=== PATIENT | male | born 1955 | race Caucasian/White ===

== ENCOUNTER 2017-12-04 14:45 | Inpatient (IN) | payer OTHER ==
[~2017-12-04] VITALS: Ht 180.3 cm; Wt 158.8 kg
[~2017-12-04 14:45] MED LIST: ADVAIR HFA 115-12 G1 INH; ADVAIR HFA115 MCG/21 INH; ASPIR 8181 MG PO; BACITRACIN 500U30 G1 TOP; BENADRYL25 MG PO; CARVEDILOL12.5 MG PO; CELEXA20 MG PO; CLEOCIN HCL150 MG PO; COZAAR 50 MG TA50 M1 PO; DUONEB 2.5-0.5 M3 ML INH; GLUCOTROL5 MG PO; LASIX 40 MG TAB40 M2 PO; METFORMIN HCL500 MG PO; NORVASC10 MG PO; NORVASC5 MG PO; SINGULAIR 10 MG10 M1 PO; SYMBICORT160 MCG/4.; VENTOLIN HFA 1818 GM INH
[2017-12-04 14:52] VITALS: BP 151/91
[2017-12-04 15:13] LABS: ABSOLUTE BASOPHILS 0.1 thou/uL (0.0-0.2); ABSOLUTE EOSINOPHILS 0.6 thou/uL (0.0-0.7); ABSOLUTE LYMPHOCYTES 2.4 thou/uL (0.8-5.3); ABSOLUTE MONOCYTES 0.8 thou/uL (0.0-1.2); ABSOLUTE NEUTROPHILS 4.4 thou/uL (1.6-8.1); BASOPHILS 1.4 %; EOSINOPHILS 7.6 %; HEMATOCRIT 38.3 % (42.0-52.0); HEMOGLOBIN 12.7 gm/dL (14.0-18.0); LYMPHOCYTES 29.1 %; MCH 27.8 pg (26.0-34.0); MCHC 33.3 g/dL (28.0-37.0); MCV 83.3 fL (80.0-100.0); MONOCYTES 9.9 %; MPV 7.7 fl. (7.2-11.1); NUCLEATED RBCS 0 /100WBC; PLATELET COUNT* 308 thou/uL (150-400); RBC 4.59 mil/uL (4.50-6.00); RDW-CV 14.3 % (10.5-14.5); WBC 8.4 thou/uL (4.0-11.0)
[2017-12-04 15:21] LABS: ANION GAP 8 mmol/L (7-16); BUN 12 mg/dL (7-18); CALCIUM 8.7 mg/dL (8.5-10.1); CHLORIDE 102 mmol/L (98-107); CO2 28 mmol/L (21-32); GLUCOSE 171 mg/dL (70-99); POTASSIUM 4.1 mmol/L (3.5-5.1); SODIUM 138 mmol/L (136-145)
[2017-12-04 15:25] LABS: APTT 28.7 Seconds (25.0-31.3); PROTIME 10.1 Seconds (9.20-11.50)
[2017-12-04 15:36] LABS: ALBUMIN 3.3 g/dL (3.4-5.0); ALKALINE PHOSPHATASE 88 U/L (46-116); NT-PRO BRAIN NAT PEPTIDE 73 pg/mL (<300); SGOT 21 U/L (15-37); TOTAL BILIRUBIN 0.4 mg/dL (<0.1-1.0); TROPONIN-I LEVEL <0.06 ng/mL (<0.06)
[2017-12-04 15:51] LABS: SGPT 18 U/L (30-65)
[2017-12-04 17:01] LABS: URINE BILIRUBIN NEGATIVE (Negative); URINE BLOOD NEGATIVE (Negative); URINE CLARITY CLEAR; URINE COLOR YELLOW; URINE GLUCOSE-RANDOM NEGATIVE (Negative); URINE KETONES NEGATIVE (Negative); URINE LEUKOCYTES-REFLEX NEGATIVE (Negative); URINE NITRITE-REFLEX NEGATIVE (Negative); URINE PROTEIN TRACE (Negative)
[2017-12-04 18:43] VITALS: BP 139/68
--- NOTE | 2017-12-04 19:30 | NUR ---
PATIENT IN ROOM AT SHIFT CHANGE. PT ALERT/ORIENTED X4. PT SAID SWELLING, WARMTH AND BLISTERING STARTED ON LOWER EXTREMITIES ABOUT ONE WEEK AGO. PT SAID BLISTERS WERE OOZING BUT ARE BETTER NOW. PT SAYS PAIN WHILE RESTING IS 2-3/10 BUT IS 10/10 WHEN AMBULATING OR MOVING LEGS. PT LIVES IN [place] WITH HIS . PT SAYS HAS HAD SEVERAL STROKES AND HE FEELS BETWEEN THE TWO OF THEM HE MAY NEED HOME HEALTH WHEN HE GOES HOME. PT HAS A WALKER HE DOES NOT USE BUT USES HIS CANE DAILY. PT IS DIABETIC BUT EATS A REGULAR DIET AT HOME. PT DENIES NEEDS AT THIS TIME. PT ORIENTED TO ROOM/POLICIES AND VERBALIZES UNDERSTANDING. FREQUENTLY USED ITEMS AND CALL LIGHT WITHIN REACH. SIDERAILS UPX2. WILL CONTINUE TO MONITOR.
--- NOTE | 2017-12-04 19:41 | NUR ---
PATIENT ARRIVED ON UNIT AT 1900. TOOK REPORT FROM ER NURSE ANNEMARIE. PATIENT WAS ORIENTED TO ROOM, ALL BELONGINGS WITHIN REACH, CALL LIGHT AT BEDSIDE. REPORTED OFF TO NOC SHIFT NURSE. PATIENT STABLE IN ROOM.
[2017-12-04 21:49] VITALS: BP 145/74
[2017-12-04] MEDS ORDERED: LASIX 40 MG TAB40 M2 PO (22:36)
[2017-12-05 07:50] VITALS: BP 105/61
--- NOTE | 2017-12-05 09:14 | EKG ---
[place] [id number] ELECTROCARDIOGRAM REPORT Name: JAMAL CASTELAN Room: [address] IN R.#: [id number] Admission: 12/04/17 Attend Phys: Marina Petit Discharge: Date of : 55 Report #: [id number] THIS REPORT FOR: //name// [facility] ED Test Date: 2017-12-04 Test Time: 14:54:39 Pat Name: JAMAL CASTELAN Department: Room: Gender: Building Services Supervisor: Jordon ROBLES : 1955 Requested By: Loc Jarquin Order Number: [id number] MD: Valdez Kc Measurements Intervals [place] Rate: 80 P: 51 LA: 63 QRS: 223 QRSD: 140 T: 69 QT: 413 QTc: 477 Interpretive Statements Ventricular-paced rhythm No further analysis attempted due to paced rhythm Compared to ECG 05/28/2017 12:24:05 No significant changes Electronically Signed On 12-05-2017 9:13:43 CDT by Valdez Kc [email or web address] <ELECTRONICALLY SIGNED> By: Valdez Kc MD, [facility] 12/05/17 0913 1454 1454 Valdez Kc MD, [facility] /EPI
[2017-12-05 13:00] VITALS: BP 131/77
--- NOTE | 2017-12-05 14:42 | NUR ---
MET WITH PT TO DISCUSS HOME SITUATION/DC PLANNING. PT LIVES WITH WHO HE STATES HAD HAD 'STROKES' AND HE CARES FOR. PT USES CANE OR WALKER NEEDED. HE HAS HAD HH IN THE PAST BUT CANNOT REMEMBER NAME OF AGENCY. HE HAS DONE IV ANTIBX IN THE PAST ALSO. HIS DTR/TRISHA IS DPOA. PT STATES HIS DTR LIVES OUT OF TOWN. HE AND MANAGE FAIRLY WELL. PT COOKS, CLEANS, DRIVES. STATES HAS HAD INCREASED DIFFICULTY WITH THOSE THINGS THE LAST 2 WEEKS D/T LEG EDEMA. HE DOES PLANS TO GO HOME AT [place]. WOUND CARE SAW PT AND RECOMMENED LYMPHEDEMA CLINIC. CALL TO OUTPT THERAPY TO SET UP, THEY NEED A DRS ORDER TO SEE PT. WILL ASK DR TO WRITE AT [place]. WILL FOLLOW
--- NOTE | 2017-12-05 15:13 | NUR ---
WOUND NURSE: PATIENT SEEN TO ADDRESS PERIPHERAL EDEMA IN BLE. BLE PRESENTS WITH 2+ EDEMA, REDNESS, AND WARMTH; FEW SMALL DRY SCABS, NO OPEN WOUNDS OR PRESENCE OF DRAINAGE. PEDAL PULSES ARE PALPABLE BLE. LEG GIRTH MEASUREMENTS ARE FOLLOWS: FOREFOOT: 26.5 RT & LT; ANKLE: 28.0 RT, 27.0 LT; CALF: 47.5 RT, 50.5 LT. APPLIED SINGLE LAYER TUBIGRIPS FROM TOES TO KNEE TO BLE (SIZE F ON RT AND G ON LT. PATIENT INSTRUCTED ON NEED FOR COMPRESSION FOR EDEMA CONTROL; HE STATED HE CAN'T TOLERATE COMPRESSION STOCKINGS. RECOMMENDED HE MAY NEED GARMENT, E.G., CIRCAIDS OR JUXTA-LITES. RECOMMENDED F/U AT LYMPHEDEMA UPON DISCHARGE FROM ACUTE CARE. ALSO ENCOURAGED PATIENT TO ELEVATE LEGS MUCH POSSIBLE AT =/> 15 DEGREES. PATIENT STATED HE UNDERSTOOD.
[2017-12-05 15:37] VITALS: BP 139/81
--- NOTE | 2017-12-05 18:58 | NUR ---
PATIENT RESTING IN BED. PATIENT HAS HAD COMPLAINTS OF PAIN TO BILATERAL LOWER EXTREMITIES AND RIGHT KNEE, TREATED ADEQUATELYT WITH OXYCODONE. PATIENT HAS GOOD APPETITE. PATIENT USES URINAL. PATIENT HAS NOT BEEN UP OUT OF BED, REPOSITIONS IN BED. PATIENT SEEN BY WOUND CARE NURSE THIS MORNING, WHOM PLACED TUBIGRIPS TO BLE. PATIENT DENIES ANY NEEDS AT THIS TIME. CALL LIGHT WITHIN REACH. WILL CONTINUE TO MONITOR.
[2017-12-06 00:25] VITALS: BP 139/72
[2017-12-06 04:44] LABS: CALCIUM 8.4 mg/dL (8.5-10.1); CREATININE 0.9 mg/dL (0.6-1.3); POTASSIUM 4.3 mmol/L (3.5-5.1)
[2017-12-06 05:13] LABS: IgA 273 mg/dL (61-437); IgG 1455 mg/dL (700-1600); IgM 47 mg/dL (20-172)
[2017-12-06 05:58] LABS: BE 0.6 mmol/L (-2 to +3); PO2 80.2 mmHg (75.0-100.0); pH 7.347 (7.340-7.450)
[2017-12-06 06:00] LABS: PCO2 50.3 mmHg (35.0-45.0)
[2017-12-06 08:05] VITALS: BP 149/83
[2017-12-06 15:28] VITALS: BP 114/71
--- NOTE | 2017-12-06 15:47 | NUR ---
CONTINUE TO FOLLOW, MET [facility] PT AND DTR. RECOMMENDATION FROM THERAPY IS FOR HH AND A FRONT WHEELED WALKER. PT HAS 4 WHEELED WALKER WITH SEAT THAT HE PURCHASED ON HIS OWN. WILL ASK DR FOR ORDER FOR WALKER, WILL NEED TO BE ARRANGED THRU [facility]. DISCUSSED HH, DTR AND PT DISCUSSED OPTIONS AND CHOSE [facility],. CALLED AND FAXED INITIAL REFERRAL TO [facility]. WILL FOLLOW AND ASSIST WITH FINAL DC ORDERS WHEN RECEIVED
[2017-12-06 15:49] VITALS: BP 114/71
--- NOTE | 2017-12-06 16:21 | 2DMMODE ---
[place] [address] 2 D/M-MODE ECHOCARDIOGRAM Name: JAMAL CASTELAN Room: [address] IN [facility]#: [id number] Admission: 12/04/17 Attend Phys: Noel Aparicio Discharge: Date of : 55 Date of Service: 12/06/17 1621 Report #: [id number] THIS REPORT FOR: //name// APPROVED REPORT Study performed: 12/06/2017 14:00:38 EXAM: Comprehensive 2D, Doppler, and color-flow Echocardiogram Patient Location: In-Patient Room #: [facility] Status: routine BSA: 2.68 HR: 76 bpm BP: 149/83 mmHg Rhythm: NSR Other Information Study Quality: Good Indications Pacemaker 2D Dimensions LVEF(%): 73.14 (>50%) IVSd: 14.53 (7-11mm) LVOT Diam: 18.99 (18-24mm) LVDd: 46.98 mm PWd: 12.37 (7-11mm) Ascending Ao: 37.30 (22-36mm) LVDs: 27.18 (25-40mm) Aortic Root: 31.76 mm Mondragon's LVEF: 73.14 % Volumes Left Atrial Volume (Systole) LA ESV Index: 28.20 mL/m2 Aortic Valve AoV Peak Mina.: 1.92 m/s AO Peak Gr.: 14.73 mmHg LVOT Max P.99 mmHg AO Mean Gr.: 9.09 mmHg LVOT Mean P.95 mmHg LVOT Max V: 1.41 m/s AO V2 VTI: 41.93 cm LVOT Mean V: 1.04 m/s LATRICIA (VTI): 2.01 cm2 LVOT V1 VTI: 29.81 cm Mitral Valve E/A Ratio: 1.08 [place] [address] 2 D/M-MODE ECHOCARDIOGRAM Name: JAMAL CASTELAN Room: [address] IN .R.#: [id number] Admission: 12/04/17 Attend Phys: Noel Aparicio Discharge: Date of : 55 Date of Service: 12/06/17 1621 Report #: [id number] MV Decel. Time: 283.00 ms MV E Max Mina.: 1.18 m/s MV PHT: 82.07 ms MVA (PHT): 2.68 cm2 TDI E/Lateral E': 14.75 E/Medial E': 11.80 Medial E' Mina.: 0.10 m/s Lateral E' Mina.: 0.08 m/s Pulmonary Valve PV Peak Mina.: 1.34 m/s PV Peak Gr.: 7.16 mmHg Tricuspid Valve TR Peak Gr.: 27.36 mmHg RVSP: 32.00 mmHg Left Ventricle The left ventricle is normal size. There is normal LV segmental wall motion. Mild concentric left ventricular hypertrophy. Left ventricular systolic function is normal. The left ventricular ejection fraction is within the normal range. LVEF is 55-60%. Grade I - abnormal relaxation pattern. Right Ventricle The right ventricle is normal size. The right ventricular systolic function is normal. Pacemaker lead is present in the right ventricle. Atria The left atrium size is normal. The right atrium size is normal. Aortic Valve The Aortic valve is sclerotic. Aortic valve is not well visualized. No aortic regurgitation is present. Mild aortic stenosis. Mitral Valve The mitral valve is normal in structure. Trace mitral regurgitation. No evidence of mitral valve stenosis. Tricuspid Valve The tricuspid valve is normal in structure. Trace tricuspid regurgitation. The RVSP is 30-35 mmHg. Pulmonic Valve The pulmonary valve is normal in structure. There is no pulmonic [place]vular [place] [address] 2 D/M-MODE ECHOCARDIOGRAM Name: JAMAL CASTELAN Room: [address] IN M.R.#: [id number] Admission: 12/04/17 Attend Phys: Noel Aparicio Discharge: Date of : 55 Date of Service: 12/06/17 1621 Report #: [id number] Great Vessels The aortic root is normal in size. IVC is normal in size and collapses with >50% inspiration Pericardium There is no pericardial effusion. <Conclusion> LVEF is 55-60%. There is normal LV segmental wall motion No aortic regurgitation is present. Mild aortic stenosis. Grade I - abnormal relaxation pattern. Pacemaker lead is present in the right ventricle. <ELECTRONICALLY SIGNED> By: Rashaun Jaimes MD, FACC 12/06/171620 20 20 Rashaun Jaimes MD, FACC /INF
--- NOTE | 2017-12-06 17:10 | NUR ---
PATIENT RESTING IN BED. PATIENT HAS BEEN UP TO CHAIR THIS AFTERNOON AND WORKED WITH THERAPY. PATIENT HAS COMPLAINTS OF RIGHT KNEE PAIN. TUBIGRIPS IN PLACE TO BLE. PATIENT HAS GOOD APPETITE. PATIENT DENIES ANY NEEDS AT THIS TIME. CALL LIGHT WITHIN REACH. WILL CONTINUE TO MONITOR.
[2017-12-06 20:00] VITALS: BP 143/75
--- NOTE | 2017-12-07 05:32 | NUR ---
PT SLEPT MOST OF SHIFT. ASSESSMENT DOCUMENTED. MEDS GIVEN PER E-SEP. IV PATENT, ABX INFUSED. PT REPORTED PAIN BUT STATED HE DID NOT WANT PAIN MEDS AT THE TIME. WILL CONTINUE WITH PLAN OF CARE.
[2017-12-07 07:40] VITALS: BP 181/97
[2017-12-07 08:28] VITALS: BP 181/97
[2017-12-07 09:39] LABS: HEMATOCRIT 37.8 % (42.0-52.0); HEMOGLOBIN 12.6 gm/dL (14.0-18.0); MCHC 33.2 g/dL (28.0-37.0); MCV 84.4 fL (80.0-100.0); NUCLEATED RBCS 0 /100WBC; PLATELET COUNT* 309 thou/uL (150-400); RBC 4.48 mil/uL (4.50-6.00); RDW-CV 14.5 % (10.5-14.5); WBC 7.7 thou/uL (4.0-11.0)
[2017-12-07 09:42] LABS: CALCIUM 8.4 mg/dL (8.5-10.1); POTASSIUM 4.1 mmol/L (3.5-5.1)
[2017-12-07 10:02] LABS: ABSOLUTE BASOPHILS 0.1 thou/uL (0.0-0.2); ABSOLUTE EOSINOPHILS 0.8 thou/uL (0.0-0.7); ABSOLUTE MONOCYTES 0.3 thou/uL (0.0-1.2); ABSOLUTE NEUTROPHILS 3.5 thou/uL (1.6-8.1); ANISOCYTOSIS 1+; PLATELET ESTIMATE ADEQUATE
[2017-12-07 10:03] LABS: POIKILOCYTOSIS 1+
[2017-12-07 10:43] LABS: ESR (SEDRATE) 60 mm/hr (0-20)
[2017-12-07] MEDS ORDERED: MINOCIN100 MG PO (11:17)
--- NOTE | 2017-12-07 12:30 | NUR ---
PATIENT DISCHARGED TO HOME WITH HOME HEALTH. DISCHARGE PAPERS REVIEWED AND SIGNED. PRESCRIPTIONS AND INFORMATION SHEETS GIVEN. IV REMOVED. DISCHARGE PHOTOS TAKEN. WALKER FOR HOME PROVIDED. PATIENT DENIES ANY NEEDS AT THIS TIME. PATIENT TAKEN BY WHEELCHAIR TO EXIT. LEFT WITH DAUGHTER.
--- NOTE | 2017-12-07 13:32 | NUR ---
PT. DISCHARGED TO HOME WITH HOME HEALTH PRIOR TO O.T. EVAL. PLEASE ORDER FURTHER O.T. SERVICES IF NEEDED.
[2017-12-07 14:10] LABS: GLOBULIN TOTAL 3.9 g/dL (2.2-3.9); M-SPIKE Not Observed g/dL (Not Observed)
--- NOTE | 2017-12-10 07:48 | CON ---
[address] [address] CONSULTATION Name: JAMAL CASTELAN Room: [address] IN .R.#: [id number] Admission: 12/04/17 Attend Phys: Marina Petit Discharge: 12/07/17 Date of : 55 Report #: [id number] THIS REPORT FOR: //name// CC: Ju Aparicio DATE OF SERVICE: 12/07/2017 ATTENDING PHYSICIAN: Dr. Miller. REASON FOR EVALUATION: Right lower extremity skin and soft tissue infection with cellulitis in the setting of chronic venous stasis insufficiency, dermatitis. HISTORY OF PRESENT ILLNESS: Chart reviewed, patient examined. This is a 62-year-old gentleman with known cardiomyopathy who has had issue with longstanding intermittent swelling of lower extremities. He has been actually hospitalized over the last couple years of severe sepsis and perhaps shock due to MSSA septicemia felt to be secondary to lower extremity skin and soft tissue infection. He was readmitted with marked swelling bilaterally with right greater than left inflammatory changes, pain associated with the right lower extremity. He had been empirically placed on vancomycin. Clinically, he has improved. He has benefited from compression. He denies fevers. No significant pulmonary or gastrointestinal related complaints. Appetite has been satisfactory. ALLERGIES: LISINOPRIL. MEDICATIONS: Include furosemide, ipratropium and albuterol inhaler, amlodipine, glipizide, budesonide, oxycodone, albuterol, vancomycin, enoxaparin, montelukast, metformin, carvedilol. PAST MEDICAL HISTORY: History of hypertension, asthma, cardiomyopathy, history of sleep apnea, utilizes CPAP, history of severe depression, implantable cardioverter defibrillator, arthritis, diabetes mellitus. SOCIAL HISTORY: Nonsmoker, no ethanol. FAMILY HISTORY: Noncontributory. REVIEW OF SYSTEMS: As above. PHYSICAL EXAMINATION: GENERAL: He is obese. He is pleasant, cooperative. Clearly, he has a habitual issue with picking at his skin, did have frequently wound during the visit, [place] [address] CONSULTATION Name: JAMAL CASTELAN Room: [address]#: [id number] Admission: 12/04/17 Attend Phys: Marina Petit Discharge: 12/07/17 Date of : 55 Report #: [id number] VITAL SIGNS: Temperature 97.4, pulse 75, respirations 18, blood pressure 181/97. SKIN: Warm, dry, no rashes. HEENT: Otherwise, unremarkable. NECK: Thick, supple. LUNGS: Diminished breath sounds. HEART: Regular. I do not appreciate any murmur. ABDOMEN: Soft, obese. EXTREMITIES: Bilateral lower extremities have changes consistent with chronic venous stasis insufficiency with dermatitis, has some mild tenderness. There are multiple areas of scarring, some moderate degree of inflammation at this point. GENITOURINARY AND RECTAL: Deferred. LABORATORY DATA: CBC: White count of 7.7, H and H 12.6 and 37.8, platelets of 309. Sed rate of 60. Electrolytes: Sodium 137, potassium 4.1, chloride 101, bicarbonate 29, BUN and creatinine 10 and 1.0, anion gap of 7, glucose of 153. Estimated GFR of 76. Uric acid 4.3. Echo with an EF of 55-60%, mild aortic stenosis. Blood cultures sterile thus far. ASSESSMENT: Bilateral lower extremity venous stasis insufficiency with dermatitis. I think the right was complicated by skin and soft tissue infection due to skin-related organism, likely Staph or Strep responsive to vancomycin, compression, elevation. We will continue antibiotics, transition to minocycline for additional 10 days. Again, strongly encouraged to compression and educated on the optimal skin health including avoidance of picking. We will see him in followup. <ELECTRONICALLY SIGNED> By: Vish Skaggs MD 12/10/17 0748 1054 1910Jomary Skaggs MD /nt
== END 2017-12-07 12:30 | disposition home health service (06) | DRG 602 ==
LOC: M.ERS 14:45 → M.3W 16:52 → M.TBA-ER 16:52 → M.3W 19:00
PROVIDERS: Family Medicine; Internal Medicine; ADMIT Internal Medicine
DX: L03.116 Cellulitis of left lower limb (principal); I50.23 Acute on chronic systolic (congestive) heart failure; J96.10 Chronic respiratory failure, unspecified whether with hypoxia or hypercapnia; I42.9 Cardiomyopathy, unspecified; I13.0 Hypertensive heart and chronic kidney disease with heart failure and stage 1 through stage 4 chronic kidney disease, or unspecified chronic kidney disease; L03.115 Cellulitis of right lower limb; M19.90 Unspecified osteoarthritis, unspecified site; F32.9 Major depressive disorder, single episode, unspecified; I87.2 Venous insufficiency (chronic) (peripheral); N18.9 Chronic kidney disease, unspecified; E11.22 Type 2 diabetes mellitus with diabetic chronic kidney disease; Z95.810 Presence of automatic (implantable) cardiac defibrillator; Z86.74 Personal history of sudden cardiac arrest; Z91.5 Personal history of self-harm; Z79.51 Long term (current) use of inhaled steroids; Z79.84 Long term (current) use of oral hypoglycemic drugs; Z79.899 Other long term (current) drug therapy; Z88.8 Allergy status to other drugs, medicaments and biological substances

== ENCOUNTER → 2018-04-16 | Outpatient (CLI) | payer OTHER ==
[~2018-04-16] MED LIST changes: +ALBUTEROL2.5 MG/31 INH; +ANCEF 1GM1 GM/50 M2 IV; +ENOXAPARIN40 MG/0.1 SUBQ; +HUMALOG100 UNIT/1 SUBQ; +HYDROCODONE-AP1 EAC6 PO; +MINOCIN100 MG PO; +MIRALAX17 GM PO; +OXYCODONE HCL10 MG PO; +TRAMADOL 50 MG50 MG PO
== END ==
LOC: M.RAD 11:11
DX: M25.462 Effusion, left knee (principal); Z96.652 Presence of left artificial knee joint

== ENCOUNTER 2018-04-26 14:22 | Emergency (ER) | payer OTHER ==
[~2018-04-26] VITALS: Ht 175.3 cm; Wt 152.4 kg
[~2018-04-26 14:22] MED LIST changes: -ALBUTEROL2.5 MG/31 INH; -ANCEF 1GM1 GM/50 M2 IV; -ENOXAPARIN40 MG/0.1 SUBQ; -HUMALOG100 UNIT/1 SUBQ; -HYDROCODONE-AP1 EAC6 PO; -MIRALAX17 GM PO; -OXYCODONE HCL10 MG PO; -TRAMADOL 50 MG50 MG PO
[2018-04-26 14:55] LABS: HEMATOCRIT 37.9 % (42.0-52.0); HEMOGLOBIN 12.6 gm/dL (14.0-18.0); MCHC 33.2 g/dL (28.0-37.0); MCV 84.2 fL (80.0-100.0); MPV 7.5 fl. (7.2-11.1); NUCLEATED RBCS 0 /100WBC; PLATELET COUNT* 424 thou/uL (150-400); RDW-CV 14.6 % (10.5-14.5); WBC 9.1 thou/uL (4.0-11.0)
[2018-04-26 15:07] LABS: CALCIUM 8.8 mg/dL (8.5-10.1); CREATININE 1.1 mg/dL (0.6-1.3); POTASSIUM 3.9 mmol/L (3.5-5.1)
[2018-04-26 15:11] LABS: ALBUMIN 3.1 g/dL (3.4-5.0); TOTAL BILIRUBIN 0.7 mg/dL (<0.1-1.0); TOTAL PROTEIN 8.3 g/dL (6.4-8.2)
[2018-04-26] MEDS ORDERED: HYDROCODONE-AP1 EAC6 PO (15:33)
[2018-04-26 15:45] LABS: ABSOLUTE EOSINOPHILS 0.4 thou/uL (0.0-0.7); ABSOLUTE LYMPHOCYTES 2.1 thou/uL (0.8-5.3); ABSOLUTE NEUTROPHILS 5.6 thou/uL (1.6-8.1); METAMYELOCYTES 1 %
[2018-04-26 15:46] LABS: ANISOCYTOSIS Occasional; PLATELET ESTIMATE INCREASED
[2018-04-26 16:00] VITALS: BP 159/85
== END 2018-04-26 16:00 | disposition home or self-care (01) ==
LOC: M.ERS 14:22
PROVIDERS: Nurse Practitioner Family
DX: M79.605 Pain in left leg (principal); I10 Essential (primary) hypertension; J45.909 Unspecified asthma, uncomplicated; E11.9 Type 2 diabetes mellitus without complications; Z79.01 Long term (current) use of anticoagulants; Z79.84 Long term (current) use of oral hypoglycemic drugs; Z79.899 Other long term (current) drug therapy; Z88.8 Allergy status to other drugs, medicaments and biological substances

== ENCOUNTER 2018-04-28 17:42 | Inpatient (IN) | payer OTHER ==
[~2018-04-28] VITALS: Ht 180.3 cm; Wt 154.2 kg
[~2018-04-28 17:42] MED LIST changes: +HYDROCODONE-AP1 EAC6 PO
[2018-04-28 17:46] VITALS: BP 162/70
[2018-04-28 18:34] LABS: ABSOLUTE BASOPHILS 0.1 thou/uL (0.0-0.2); ABSOLUTE EOSINOPHILS 0.2 thou/uL (0.0-0.7); ABSOLUTE LYMPHOCYTES 1.5 thou/uL (0.8-5.3); ABSOLUTE MONOCYTES 1.1 thou/uL (0.0-1.2); ABSOLUTE NEUTROPHILS 4.6 thou/uL (1.6-8.1); BASOPHILS 0.8 %; EOSINOPHILS 2.8 %; HEMATOCRIT 36.9 % (42.0-52.0); HEMOGLOBIN 12.2 gm/dL (14.0-18.0); LYMPHOCYTES 20.5 %; MCH 27.9 pg (26.0-34.0); MCHC 33.2 g/dL (28.0-37.0); MONOCYTES 14.2 %; MPV 7.3 fl. (7.2-11.1); NUCLEATED RBCS 0 /100WBC; PLATELET COUNT* 384 thou/uL (150-400); POLYS 61.7 %; RBC 4.39 mil/uL (4.50-6.00); RDW-CV 14.4 % (10.5-14.5); WBC 7.4 thou/uL (4.0-11.0)
[2018-04-28 18:42] LABS: CALCIUM 8.3 mg/dL (8.5-10.1); POTASSIUM 3.6 mmol/L (3.5-5.1)
[2018-04-28 18:47] LABS: ALBUMIN 2.7 g/dL (3.4-5.0); TOTAL BILIRUBIN 0.4 mg/dL (<0.1-1.0); TOTAL PROTEIN 7.8 g/dL (6.4-8.2); URIC ACID* 3.9 mg/dL (2.6-7.2)
[2018-04-28 19:38] LABS: ESR (SEDRATE) 71 mm/hr (0-20)
[2018-04-28 22:23] VITALS: BP 143/59
[2018-04-28 23:30] VITALS: BP 167/84
[2018-04-29 05:02] LABS: HEMATOCRIT 36.6 % (42.0-52.0); HEMOGLOBIN 11.9 gm/dL (14.0-18.0); MCH 27.7 pg (26.0-34.0); MCHC 32.5 g/dL (28.0-37.0); MCV 85.1 fL (80.0-100.0); MPV 8.2 fl. (7.2-11.1); RBC 4.31 mil/uL (4.50-6.00); RDW-CV 14.6 % (10.5-14.5); WBC 8.2 thou/uL (4.0-11.0)
[2018-04-29 05:39] LABS: ALBUMIN 2.7 g/dL (3.4-5.0); CALCIUM 8.3 mg/dL (8.5-10.1); TOTAL BILIRUBIN 0.5 mg/dL (<0.1-1.0); TOTAL PROTEIN 6.7 g/dL (6.4-8.2)
[2018-04-29 08:00] VITALS: BP 154/84
[2018-04-29 12:00] VITALS: BP 165/90
[2018-04-29 16:00] VITALS: BP 152/68
--- NOTE | 2018-04-29 16:19 | EKG ---
[place] [address] ELECTROCARDIOGRAM REPORT Name: JAMAL CASTELAN Room: [address] ADM IN M.R.#: [id number] Admission: 04/28/18 Attend Phys: Juan Gutiérrez MD Discharge: Date of : 55 Report #: [id number] THIS REPORT FOR: //name// [facility] Test Date: 2018-04-29 Test Time: 14:59:26 Pat Name: JAMAL CASTELAN Department: Room: [address] Gender: M Tree Trimmer Helper: SARAHY : 1955 Requested By: Vaibhav Elizabeth Order Number: [id number] MD: Ciao Moreno Measurements Intervals [place] Rate: 77 P: 37 SC: 151 QRS: 269 QRSD: 143 T: 113 QT: 431 QTc: 488 Interpretive Statements Atrial-sensed ventricular-paced rhythm No further analysis attempted due to paced rhythm Compared to ECG 12/04/2017 14:54:39 No significant changes Electronically Signed On 04-29-2018 16:19:33 CDT by Caio Moreno [email or web address] <ELECTRONICALLY SIGNED> By: Caio Moreno MD, FACC 04/29/18 1619 1459 1459 Caio Moreno MD, [facility] /EPI
[2018-04-29 17:21] VITALS: BP 139/81; BP 152/68
[2018-04-29 19:46] LABS: BF RBC 20715 /mm3; TOTAL CELL COUNT >66000 /mm3
[2018-04-29 19:54] LABS: CLARITY CLOUDY; COLOR AMBER; TOTAL VOLUME 60 ml
[2018-04-29 20:00] VITALS: BP 129/84
[2018-04-29 20:02] LABS: ABSOLUTE BASOPHILS 0.1 thou/uL (0.0-0.2); ABSOLUTE EOSINOPHILS 0.2 thou/uL (0.0-0.7); ABSOLUTE LYMPHOCYTES 1.9 thou/uL (0.8-5.3); ABSOLUTE MONOCYTES 1.4 thou/uL (0.0-1.2); ABSOLUTE NEUTROPHILS 6.5 thou/uL (1.6-8.1); BASOPHILS 1.2 %; EOSINOPHILS 2.2 %; HEMATOCRIT 37.6 % (42.0-52.0); HEMOGLOBIN 12.2 gm/dL (14.0-18.0); LYMPHOCYTES 18.8 %; MCH 27.4 pg (26.0-34.0); MCHC 32.3 g/dL (28.0-37.0); MCV 84.9 fL (80.0-100.0); MONOCYTES 13.5 %; MPV 7.7 fl. (7.2-11.1); NUCLEATED RBCS 0 /100WBC; PLATELET COUNT* 425 thou/uL (150-400); POLYS 64.3 %; RBC 4.44 mil/uL (4.50-6.00); RDW-CV 14.6 % (10.5-14.5); WBC 10.2 thou/uL (4.0-11.0)
[2018-04-29 20:09] LABS: BF MONOCYTES 1 %; BF POLYS 96 %; SOURCE LEFT KNEE
[2018-04-29 20:10] LABS: BF LYMPHOCYTES 3 %
[2018-04-30] VITALS: BP 132/56; BP 140/71
[2018-04-30 04:00] VITALS: BP 152/61
[2018-04-30 05:31] LABS: ABSOLUTE BASOPHILS 0.1 thou/uL (0.0-0.2); ABSOLUTE EOSINOPHILS 0.1 thou/uL (0.0-0.7); ABSOLUTE LYMPHOCYTES 1.7 thou/uL (0.8-5.3); ABSOLUTE MONOCYTES 1.3 thou/uL (0.0-1.2); ABSOLUTE NEUTROPHILS 5.1 thou/uL (1.6-8.1); EOSINOPHILS 1.8 %; HEMOGLOBIN 11.6 gm/dL (14.0-18.0); LYMPHOCYTES 20.4 %; MCH 27.9 pg (26.0-34.0); MCV 84.5 fL (80.0-100.0); MONOCYTES 15.2 %; MPV 8.1 fl. (7.2-11.1); NUCLEATED RBCS 0 /100WBC; POLYS 61.6 %; RBC 4.15 mil/uL (4.50-6.00); RDW-CV 14.7 % (10.5-14.5); WBC 8.4 thou/uL (4.0-11.0)
[2018-04-30 05:37] LABS: PLATELET COUNT* 332 thou/uL (150-400)
[2018-04-30 05:45] LABS: CALCIUM 8.4 mg/dL (8.5-10.1); CREATININE 1.1 mg/dL (0.6-1.3); MAGNESIUM 2.1 mg/dL (1.8-2.4); POTASSIUM 4.2 mmol/L (3.5-5.1)
[2018-04-30 12:00] VITALS: BP 146/62
[2018-04-30 15:30] VITALS: BP 136/64
[2018-04-30 20:00] VITALS: BP 134/73
[2018-05-01] VITALS: BP 131/79
[2018-05-01 05:48] LABS: HEMATOCRIT 34.2 % (42.0-52.0); MCH 27.2 pg (26.0-34.0); MCHC 32.3 g/dL (28.0-37.0); MCV 84.3 fL (80.0-100.0); MPV 7.8 fl. (7.2-11.1); RBC 4.05 mil/uL (4.50-6.00); RDW-CV 14.1 % (10.5-14.5); WBC 8.4 thou/uL (4.0-11.0)
[2018-05-01 06:00] LABS: CALCIUM 8.4 mg/dL (8.5-10.1); MAGNESIUM 1.8 mg/dL (1.8-2.4); POTASSIUM 3.9 mmol/L (3.5-5.1)
[2018-05-01 08:07] VITALS: BP 144/81
--- NOTE | 2018-05-01 11:24 | CON ---
[address] [address] CONSULTATION Name: JAMAL CASTELAN Room: [address] IN .R.#: [id number] Admission: 04/28/18 Attend Phys: Juan Gutiérrez MD Discharge: Date of : 55 Report #: [id number] THIS REPORT FOR: //name// CC: Juan Soto DATE OF SERVICE: 04/30/2018 ATTENDING PHYSICIAN: Dr. Gutiérrez. REASON FOR EVALUATION: Left total knee arthroplasty infection. HISTORY OF PRESENT ILLNESS: Chart reviewed, the patient examined. This 62-year-old gentleman with diabetes mellitus who had undergone left total knee arthroplasty in 07/2015. In the interim roughly 2 years ago, he had a complication of MRSA septicemia. He states he required somewhere between 8 and 12 weeks of therapy, although extensive evaluation felt not to have involved the knee as a source. Over the course of last week prior to admission, he had noted increasing pain in addition to swelling, redness and heat associated with the left knee. He denies any antecedent injury. Just prior to admission, he was unable to even bear weight to an extent. He did have some night sweats, although he is not certain if he had any fevers. Evaluation raised question of possible infectious, underwent laparoscopic evaluation and was found to have marked purulence. Cultures are pending. He has been placed on empiric therapy with vancomycin as well as ceftriaxone. Not overtly toxic at this point. Denies any significant pulmonary or gastrointestinal related complaints. ALLERGIES: LISTED TO LISINOPRIL, WHICH CAUSES TONGUE SWELLING. MEDICINES: Include docusate sodium, enoxaparin, famotidine, vancomycin, insulin, budesonide, ipratropium albuterol inhaler, ceftriaxone, furosemide, losartan, amlodipine, glipizide, citalopram, carvedilol, metformin, albuterol and pantoprazole. PAST MEDICAL HISTORY: In addition to the diabetes mellitus type 2, history of hypertension, asthma, did have cardiopulmonary arrest, history of sleep apnea with CPAP, depression, arthroscopic knee procedure in 2011, implantable cardioverter-defibrillator and arthritis. SOCIAL HISTORY: Nonsmoker and no ethanol. FAMILY HISTORY: Noncontributory. REVIEW OF SYSTEMS: As above. PHYSICAL EXAMINATION: [place] [address] CONSULTATION Name: JAMAL CASTELAN Room: [address]#: [id number] Admission: 04/28/18 Attend Phys: Juan Gutiérrez MD Discharge: Date of : 55 Report #: [id number] GENERAL: He is pleasant, alert, cooperative and in oxys-tk-hgewwbem distress. VITAL SIGNS: Temperature 98, pulse 66, respirations 16 and blood pressure 143/65. SKIN: Warm, dry and no rashes. HEENT: Otherwise unremarkable. NECK: Supple. LUNGS: Generally clear to auscultation bilaterally. ABDOMEN: Obese, soft and nontender. EXTREMITIES: Left lower extremity has a compression dressing over the left knee. There is a mild degree of swelling. This was not disturbed. GENITOURINARY: Deferred. RECTAL: Deferred. LABORATORY DATA: Blood cultures are sterile thus far. Prealbumin 9.5 with most recent electrolytes sodium 136, potassium 4.2, chloride 102, bicarbonate is 25, BUN and creatinine 13 and 1.1. CBC: White count of 8.4, H and H 11.6 and 35.0, platelets of 332. Fluid analysis from the left knee aspirate is matthew, cloudy, greater than 66,000 white cells, 20,715 red cells and 96% polys. Review of postoperative note noted arthroscopic procedure with lavage of 12,000 mL, synovectomy and cultures. CRP of 144.2. ASSESSMENT: Left total knee arthroplasty infection. Continue empiric therapy. Await culture results. If he gets, real question is whether they will be able to treat through the infection. I will see how he does clinically. At this point, he is still in significant amount of pain associated with it. At very least may need to have additional procedures. Thank you, we will follow. <ELECTRONICALLY SIGNED> By: Vish Skaggs MD 05/01/18 1124 0958 [id number] Skaggs MD /nt
[2018-05-01 12:05] LABS: BODY FLUID PROTEIN 5.4 g/dL (())
[2018-05-01 15:45] LABS: SOURCE LEFT KNEE
[2018-05-01 15:52] VITALS: BP 148/79
[2018-05-02] VITALS: BP 145/73
[2018-05-02 05:07] LABS: ABSOLUTE BASOPHILS 0.1 thou/uL (0.0-0.2); ABSOLUTE EOSINOPHILS 0.2 thou/uL (0.0-0.7); ABSOLUTE LYMPHOCYTES 1.7 thou/uL (0.8-5.3); ABSOLUTE NEUTROPHILS 4.7 thou/uL (1.6-8.1); BASOPHILS 1.1 %; EOSINOPHILS 3.1 %; HEMATOCRIT 34.6 % (42.0-52.0); HEMOGLOBIN 11.6 gm/dL (14.0-18.0); LYMPHOCYTES 21.5 %; MCH 27.8 pg (26.0-34.0); MCHC 33.5 g/dL (28.0-37.0); MCV 82.9 fL (80.0-100.0); MONOCYTES 13.1 %; MPV 7.7 fl. (7.2-11.1); NUCLEATED RBCS 0 /100WBC; PLATELET COUNT* 357 thou/uL (150-400); POLYS 61.2 %; RBC 4.17 mil/uL (4.50-6.00); RDW-CV 14.2 % (10.5-14.5); WBC 7.7 thou/uL (4.0-11.0)
[2018-05-02 05:28] LABS: ALBUMIN 2.6 g/dL (3.4-5.0); CALCIUM 8.6 mg/dL (8.5-10.1); CREATININE 1.1 mg/dL (0.6-1.3); POTASSIUM 4.4 mmol/L (3.5-5.1); TOTAL BILIRUBIN 0.3 mg/dL (<0.1-1.0); TOTAL PROTEIN 7.1 g/dL (6.4-8.2)
[2018-05-02 08:36] VITALS: BP 128/84
[2018-05-02 13:41] LABS: HEMATOCRIT 34.4 % (42.0-52.0); HEMOGLOBIN 11.3 gm/dL (14.0-18.0)
[2018-05-02 16:30] VITALS: BP 135/74
[2018-05-02 20:25] VITALS: BP 140/82
[2018-05-03] VITALS: BP 101/55
[2018-05-03 04:00] VITALS: BP 92/52
[2018-05-03 04:28] LABS: ABSOLUTE BASOPHILS 0.1 thou/uL (0.0-0.2); ABSOLUTE EOSINOPHILS 0.3 thou/uL (0.0-0.7); ABSOLUTE LYMPHOCYTES 1.9 thou/uL (0.8-5.3); ABSOLUTE MONOCYTES 1.5 thou/uL (0.0-1.2); ABSOLUTE NEUTROPHILS 8.5 thou/uL (1.6-8.1); BASOPHILS 0.8 %; EOSINOPHILS 2.2 %; HEMATOCRIT 30.9 % (42.0-52.0); HEMOGLOBIN 10.2 gm/dL (14.0-18.0); LYMPHOCYTES 15.3 %; MCH 27.7 pg (26.0-34.0); MCHC 33.1 g/dL (28.0-37.0); MCV 83.7 fL (80.0-100.0); MONOCYTES 12.5 %; MPV 7.7 fl. (7.2-11.1); NUCLEATED RBCS 0 /100WBC; PLATELET COUNT* 389 thou/uL (150-400); POLYS 69.2 %; RDW-CV 14.5 % (10.5-14.5); WBC 12.3 thou/uL (4.0-11.0)
[2018-05-03 04:52] LABS: ALBUMIN 2.3 g/dL (3.4-5.0); CALCIUM 8.5 mg/dL (8.5-10.1); CREATININE 1.5 mg/dL (0.6-1.3); POTASSIUM 4.7 mmol/L (3.5-5.1); TOTAL BILIRUBIN 0.6 mg/dL (<0.1-1.0); TOTAL PROTEIN 7.2 g/dL (6.4-8.2)
[2018-05-03 08:00] VITALS: BP 109/57
[2018-05-03 12:05] VITALS: BP 135/63
[2018-05-03 15:50] VITALS: BP 144/49
--- NOTE | 2018-05-03 17:03 | OP ---
[address] [address] OPERATIVE REPORT Name: JMAAL CASTELAN Room: [address] IN .R.#: [id number] Admission: 04/28/18 Attend Phys: Juan Gutiérrez MD Discharge: Date of : 55 Report #: [id number] THIS REPORT FOR: //name// CC: Juan Soto DICTATED BY: Diego Sheikh DO DATE OF SERVICE: 05/02/2018 PREOPERATIVE DIAGNOSIS: Septic left total knee. POSTOPERATIVE DIAGNOSIS: Septic left total knee. PROCEDURE: Left total knee explant with insertion of antibiotic spacer, gentamicin and vancomycin, and Bactisure wash. Surgeon: Dr. Vaibhav Elizabeth [facility] Pathology Teacher: Dr. Diego Sheikh ANESTHESIA: General. ESTIMATED BLOOD LOSS: 800 mL. SPECIMENS: Synovasure aspirate, tissue cultures and prosthesis cultures. DRAINS: One medium Hemovac. PREOPERATIVE ANTIBIOTICS: The patient received vancomycin and scheduled Levaquin. COMPLICATIONS: None. CONDITION: The patient is stable to PACU. INDICATIONS FOR PROCEDURE: This 62-year-old male presented to the Emergency Room earlier this week with painful left total knee. The patient had a total knee done approximately 2-1/2 years ago and at that time he had an uneventful course until 6 months after the surgery he was in the hospital for approximately 2-3 weeks with sepsis of unknown origin. The patient has had minimal knee pain since then and one week ago had new onset left knee pain. The patient had received an aspirate and arthroscopic I and D to confirm septic total knee. He elected for operative intervention. DESCRIPTION OF PROCEDURE: Once written and verbal consent was obtained, [place] [address] OPERATIVE REPORT Name: JAMAL CASTELAN Room: [address] IN .R.#: [id number] Admission: 04/28/18 Attend Phys: Juan Gutiérrez MD Discharge: Date of : 55 Report #: [id number] patient was taken from the preoperative holding area to the operating suite, was given the benefit of general anesthesia. The left lower extremity was prepared for surgery, was sterilely prepped and draped in health care marketing specialist manner. A timeout was performed to verify the correct operative site, location and procedure and a midline incision was used over the old incision and sharp dissection down to the quadriceps tendon and knee capsule. A standard medial parapatellar arthrotomy was performed and tissue cultures and samples were taken and sent for culture. The implants were found to be well fixed, so using flexible osteotome and reciprocating saw the implants were removed from the bone. All remaining cement was attempted to be removed from the interstices of the bone. A thorough debridement was done. We also used approximately 9 liters of fluid and Bactisure wash throughout the process. An extensive synovectomy was performed, removing all necrotic and infected tissue. We obtained hemostasis with electrocautery as well as Aquamantys. Once the implants and necrotic tissue was removed, distal femur and proximal tibia were sized using Biomet molded antibiotic spacers. We then did a combination of gentamicin antibiotic cement as well as vancomycin powder within the cement to make our knee molds. Once these were made, we utilized vancomycin cement to fixate the molds into the proper alignment and position. The patient was found to have full extension and able to flex the knee to 90 degrees. The knee was thoroughly irrigated one more time and the capsulotomy was closed with a combination of a Ti-Cron stitch as well as a barbed Stratafix. Once the capsule was closed, repeat irrigation was performed. Hemovac drain was placed prior to closure. The skin was closed with 2-0 Monocryl suture as well as a 0 Prolene in simple interrupted fashion. Mepilex dressing was applied to the left knee. Soft Roll and Mathew bandage was applied over the dressings. The patient was awakened and taken to PACU in a stable condition. POSTOPERATIVE COURSE: The patient has been seen and will be followed by Infectious Disease. The patient will likely receive a PICC line and 6 weeks of antibiotics per the direction of Infectious Disease team. The patient will be allowed to partial weightbear on the left lower extremity. 05/03/18: Report amended to add surgeon <ELECTRONICALLY SIGNED> By: Vaibhav Elizabeth DO 05/03/18 1703 1415 [id number] Elizabeth DO /nt
[2018-05-03 22:00] VITALS: BP 122/65
[2018-05-04] VITALS: BP 122/66
[2018-05-04 04:00] VITALS: BP 134/59
[2018-05-04 04:34] LABS: ABSOLUTE BASOPHILS 0.1 thou/uL (0.0-0.2); ABSOLUTE EOSINOPHILS 0.5 thou/uL (0.0-0.7); ABSOLUTE LYMPHOCYTES 1.8 thou/uL (0.8-5.3); ABSOLUTE MONOCYTES 1.3 thou/uL (0.0-1.2); ABSOLUTE NEUTROPHILS 7.4 thou/uL (1.6-8.1); BASOPHILS 0.9 %; EOSINOPHILS 4.1 %; HEMOGLOBIN 9.2 gm/dL (14.0-18.0); LYMPHOCYTES 16.6 %; MCH 27.5 pg (26.0-34.0); MCHC 32.7 g/dL (28.0-37.0); MONOCYTES 11.8 %; MPV 7.8 fl. (7.2-11.1); NUCLEATED RBCS 0 /100WBC; PLATELET COUNT* 327 thou/uL (150-400); POLYS 66.6 %; RBC 3.33 mil/uL (4.50-6.00); RDW-CV 14.2 % (10.5-14.5); WBC 11.1 thou/uL (4.0-11.0)
[2018-05-04 04:52] LABS: ALBUMIN 2.3 g/dL (3.4-5.0); CALCIUM 8.6 mg/dL (8.5-10.1); CREATININE 1.4 mg/dL (0.6-1.3); POTASSIUM 4.5 mmol/L (3.5-5.1); TOTAL BILIRUBIN 0.5 mg/dL (<0.1-1.0); TOTAL PROTEIN 7.1 g/dL (6.4-8.2)
[2018-05-04 07:55] VITALS: BP 123/58
[2018-05-04 16:00] VITALS: BP 119/63
[2018-05-04 19:45] VITALS: BP 109/62
[2018-05-05 05:19] LABS: MCHC 33.4 g/dL (28.0-37.0); MCV 83.9 fL (80.0-100.0); RBC 2.86 mil/uL (4.50-6.00); RDW-CV 14.3 % (10.5-14.5); WBC 10.4 thou/uL (4.0-11.0)
[2018-05-05 05:52] LABS: ALBUMIN 2.1 g/dL (3.4-5.0); CALCIUM 8.3 mg/dL (8.5-10.1); CREATININE 1.6 mg/dL (0.6-1.3); POTASSIUM 3.9 mmol/L (3.5-5.1); TOTAL BILIRUBIN 0.6 mg/dL (<0.1-1.0); TOTAL PROTEIN 6.6 g/dL (6.4-8.2)
[2018-05-05 07:45] VITALS: BP 105/59
[2018-05-05 16:12] VITALS: BP 127/73
[2018-05-06] VITALS: BP 143/62
[2018-05-06 04:57] LABS: HEMATOCRIT 23.4 % (42.0-52.0); HEMOGLOBIN 7.9 gm/dL (14.0-18.0); MCH 27.9 pg (26.0-34.0); MCHC 33.6 g/dL (28.0-37.0); MPV 7.8 fl. (7.2-11.1); RBC 2.82 mil/uL (4.50-6.00); RDW-CV 14.3 % (10.5-14.5); WBC 10.1 thou/uL (4.0-11.0)
[2018-05-06 05:09] LABS: CALCIUM 8.4 mg/dL (8.5-10.1); CREATININE 1.5 mg/dL (0.6-1.3); MAGNESIUM 1.8 mg/dL (1.8-2.4); POTASSIUM 3.7 mmol/L (3.5-5.1)
[2018-05-06 08:00] VITALS: BP 126/79
[2018-05-06 15:59] VITALS: BP 123/69
[2018-05-06 20:30] VITALS: BP 134/67
[2018-05-07 08:15] VITALS: BP 134/61
[2018-05-07 15:19] VITALS: BP 133/71
[2018-05-07 15:59] VITALS: BP 138/56
[2018-05-08] VITALS: BP 143/72
[2018-05-08 08:00] VITALS: BP 167/83
[2018-05-08] MEDS ORDERED: ANCEF 1GM1 GM/50 M2 IV (10:40)
[2018-05-08] MEDS ORDERED: ALBUTEROL2.5 MG/31 INH (10:46)
[2018-05-08] MEDS ORDERED: ENOXAPARIN40 MG/0.1 SUBQ (10:49)
[2018-05-08] MEDS ORDERED: MIRALAX17 GM PO (10:51)
[2018-05-08] MEDS ORDERED: OXYCODONE HCL10 MG PO (10:53)
[2018-05-08] MEDS ORDERED: HUMALOG100 UNIT/1 SUBQ (11:08)
[2018-05-08 11:13] VITALS: BP 167/83
[2018-05-08] MEDS ORDERED: TRAMADOL 50 MG50 MG PO (13:25)
[2018-05-08 17:12] VITALS: BP 118/99
--- NOTE | 2018-05-10 07:20 | OP ---
[address] [address] OPERATIVE REPORT Name: JAMAL CASTELAN Room: [address] IN M.R.#: [id number] Admission: 04/28/18 Attend Phys: Juan Gutiérrez MD Discharge: 05/08/18 Date of : 55 Report #: [id number] THIS REPORT FOR: //name// CC: Juan Soto DATE OF SERVICE: 04/29/2018 PREOPERATIVE DIAGNOSIS: Left total knee septic arthritis. PROCEDURE PERFORMED: Left knee arthroscopic lavage with synovectomy of all 3 compartments and cultures. POSTOPERATIVE DIAGNOSIS: Left total knee septic arthritis. SURGEON: Vaibhav Elizabeth DO FIFTH HAND: Sly Justice DO ANESTHESIA: General. ESTIMATED BLOOD LOSS: 5 mL. SPECIMENS REMOVED: Synovial fluid sent for cultures, Gram stain, glucose, cell count, crystals, protein. COMPLICATIONS: None. CONDITION: The patient is stable to PACU. INDICATIONS FOR PROCEDURE: The patient is a pleasant 62-year-old male who states his left knee has been slowly causing him pain over the past couple of weeks. Denies any inciting event or injury. He had a total knee arthroplasty in this left knee put in 2 years ago by a separate provider. He has somewhat of a tenuous medical course including a lengthy stay at [facility] for MRSA bacteremia approximately 2 years ago, 6 months after his initial implant. Otherwise, his postoperative course has been relatively uneventful. Left knee has become increasingly painful to him to the point today where he is unable to bear weight and had to call EMS. The patient is still relaying a significant amount of pain about the left knee and diffuse swelling of the left lower extremity. He states he always has some chronic venous stasis changes in bilateral lower extremities, but the left lower extremity is somewhat more erythematous and swollen than normal for him. He states he cannot tolerate any sort of range of motion about the knee, denies any other acute complaints. Denies any numbness in the extremity. A bedside aspiration attempt to the left knee was attempted and was unsuccessful. [place] [address] OPERATIVE REPORT Name: JAMAL CASTELAN Room: [address] IN [facility].#: [id number] Admission: 04/28/18 Attend Phys: Juan Gutiérrez MD Discharge: 05/08/18 Date of : 55 Report #: [id number] recommendation for proceeding to the OR for arthroscopic lavage and synovial fluid analysis to diagnose the etiology of this left knee pain. I have discussed the alternatives, benefits, and risks including but not limited to damage to neurovascular structures, continuation of pain, postoperative wound healing complications, dispersement of infection, possible need for repeat surgery and any other imponderables secondary to being taken back to the general anesthesia in the operative suite. The patient expressed his understanding of the aforementioned and wished to proceed. DESCRIPTION OF PROCEDURE: The patient was met in the preoperative area where the correct side was marked. He was then taken back to the operative suite and placed supine on a well-padded table and given the benefit of general anesthesia. He was then positioned with his left lower extremity in the arthroscopic leg merlos with a well-padded foam pad. Left knee was sterilely prepped and draped in the normal standard fashion after which the timeout was performed identifying the correct patient, procedure, side and preoperative antibiotics, which were withstanding vancomycin and Rocephin started on admission. All in the room were in agreement at which time it was agreed to proceed. The two arthroscopic incisions were made on the medial and lateral aspect of the knee with 11 blade scalpel. The lateral trocar was introduced to the joint upon which immediate purulent fluid was encountered. This was collected in a specimen cup and sent for fluid analysis. The medial portal was then introduced with blunt trocar and 9000 mL of normal saline was allowed to flush through the knee in its entirety. At the end of the initial lavage the fluid was running clear. The camera was then introduced to the knee upon which diffuse synovial erythema was encountered with fibrotic tissue throughout. A tricompartmental synovectomy was performed. The remainder of the 3000 mL was allowed to lavage the knee and bringing this to a total of 12,000 after which the camera and trocars were removed from the knee. All fluid was running clear at the end of the case. Sponge and needle counts were correct x 2. Both medial and lateral arthroscopic portals were closed with single simple interrupted sutures. Sterile well-padded dressing and compressive Mathew wrap was applied to the left knee. The patient was awoken from general anesthesia and taken back to the PACU in stable condition. He will be taken back up to the floor under the care of internal medicine with an Infectious Disease consult pending and restarted on his vancomycin, Rocephin in the interim as well as Lovenox 40 mg subcutaneous daily moving forward. <ELECTRONICALLY SIGNED> By: Vaibhav Elizabeth DO 05/10/18719 21 19Vaibhav Elizabeth DO /nt
== END 2018-05-08 18:00 | DRG 485 ==
LOC: M.ERS 17:42 → M.2W 21:23 → M.TBA-ER 21:23 → M.2W 22:52 → M.3W 05-01 16:15
PROVIDERS: Family Medicine; Internal Medicine; Nurse Practitioner Family; Orthopaedic Surgery; Personal Emergency Response Attendant
PROC: 0SBD4ZZ Excision of Left Knee Joint, Percutaneous Endoscopic Approach (ICD-10-PCS; principal; 2018-04-29)
PROC: 02HV33Z Insertion of Infusion Device into Superior Vena Cava, Percutaneous Approach (ICD-10-PCS; 2018-04-30)
PROC: 0SRD0EZ Replacement of Left Knee Joint with Articulating Spacer, Open Approach (ICD-10-PCS; 2018-05-02)
DX: M00.062 Staphylococcal arthritis, left knee (principal); R65.11 Systemic inflammatory response syndrome (SIRS) of non-infectious origin with acute organ dysfunction; L03.116 Cellulitis of left lower limb; E44.1 Mild protein-calorie malnutrition; N17.9 Acute kidney failure, unspecified; E87.1 Hypo-osmolality and hyponatremia; Z68.42 Body mass index [BMI] 45.0-49.9, adult; I10 Essential (primary) hypertension; J45.909 Unspecified asthma, uncomplicated; F32.9 Major depressive disorder, single episode, unspecified; Z96.652 Presence of left artificial knee joint; M19.90 Unspecified osteoarthritis, unspecified site; E11.9 Type 2 diabetes mellitus without complications; E66.01 Morbid (severe) obesity due to excess calories; B95.61 Methicillin susceptible Staphylococcus aureus infection as the cause of diseases classified elsewhere; Z98.52 Vasectomy status; Z88.8 Allergy status to other drugs, medicaments and biological substances; Z79.899 Other long term (current) drug therapy; Z95.810 Presence of automatic (implantable) cardiac defibrillator; Z23 Encounter for immunization

== ENCOUNTER → 2020-02-02 | Outpatient (CLI) | payer OTHER ==
[~2020-02-02] MED LIST changes: +ALBUTEROL2.5 MG/31 INH; +ANCEF 1GM1 GM/50 M2 IV; +ENOXAPARIN40 MG/0.1 SUBQ; +HUMALOG100 UNIT/1 SUBQ; +MIRALAX17 GM PO; +OXYCODONE HCL10 MG PO; +TRAMADOL 50 MG50 MG PO
== END ==
LOC: M.RAD 10:27
PROVIDERS: ATTEND Nurse Practitioner
DX: M25.462 Effusion, left knee (principal); M25.562 Pain in left knee; M25.561 Pain in right knee; E66.01 Morbid (severe) obesity due to excess calories; G89.29 Other chronic pain; B99.9 Unspecified infectious disease; Z96.652 Presence of left artificial knee joint; Z87.39 Personal history of other diseases of the musculoskeletal system and connective tissue

== ENCOUNTER → 2020-02-04 | Outpatient (CLI) | payer OTHER | LOC: M.LAB 17:07 | PROVIDERS: ATTEND Orthopaedic Surgery | DX: M25.462 Effusion, left knee (principal) ==